=== PATIENT | female | born 1995 | race Caucasian/White ===

== ENCOUNTER 2024-05-25 13:13 | Emergency (ER) | payer MEDICAID, SELFPAY ==
[2024-05-25 13:15] VITALS: BP 122/63; PULSE 81; TEMP 36.7; O2SAT 99; BMI 22.2
--- NOTE | 2024-05-25 13:26 | ED.GENADUL1 ---
HPI HPI - General Adult General Chief complaint: Altered Mental Status Stated complaint: ALTERED MENTAL STATUS Time Seen by Provider: 05/25/24 13:14 Source: patient Mode of arrival: ambulance Limitations: no limitations History of Present Illness HPI narrative: 28-year-old female presents for unclear reason. She was sent here from drug treatment center. She states that she was talking to somebody and then they made her come here. She started Lamictal 2 days ago, for unclear reason. 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 She does not have a physical complaints and states she does not even need to be here and did not want to come here but they made her come. Related Data Home Medications ?Medication ?Instructions ?Recorded ?Confirmed fluoxetine .ROUTE 05/25/24 lamotrigine 25 mg tablet (Lamictal) 25 mg PO DAILY 05/25/24 05/25/24 levothyroxine 50 mcg capsule 50 mcg PO DAILY 05/25/24 05/25/24 Allergies Allergy/AdvReac Type Severity Reaction Status Date / Time No Known Drug Allergies Allergy Verified 05/25/24 13:14 Opioid HPI Opioid Management Most Recent Opioid Data: No Data to Display Review of Systems ROS Narrative A ten point review of systems is negative except as noted above. PFSH PFSH Social History Little interest or pleasure in doing things: not at all Feeling down, depressed, or hopeless: not at all Exam Narrative Exam Narrative: Nurses note and vital signs reviewed and patient is not hypoxic. General: The patient appears well and in no apparent distress. Patient is resting comfortably on cart. Skin: Warm, dry, no pallor noted. There are numerous small skin excoriations on various areas of her body. None appear to be draining or have surrounding erythema Head: Normocephalic, atraumatic Eye: Normal conjunctiva, no drainage Ears, Nose, Mouth, and Throat: oral mucosa is moist. Nares patent. Cardiovascular: Regular Rate and Rhythm Respiratory: Patient is in no distress, no accessory muscle use, lungs are clear to auscultation, no wheezing, rales or rhonchi Back: non-tender GI: Soft and nontender Musculoskeletal: The patient has no evidence of calf tenderness, no pitting edema, symmetrical pulses noted bilaterally Neurological: A&O x4, normal speech Psychiatric: Cooperative and soft-spoken Constitutional Vital Signs, click to edit/add: Last Vital Signs Temp 98.1 F 05/25/24 13:15 Pulse 81 05/25/24 13:15 Resp 18 05/25/24 13:15 BP 122/63 05/25/24 13:15 Pulse Ox 99 05/25/24 13:15 O2 Del Method Room Air 05/25/24 13:15 Course Vital Signs Vital signs: Vital Signs Temperature 98.1 F 05/25/24 13:15 Pulse Rate 81 05/25/24 13:15 Respiratory Rate 18 05/25/24 13:15 Blood Pressure 122/63 05/25/24 13:15 Pulse Oximetry 99 05/25/24 13:15 Oxygen Delivery Method Room Air 05/25/24 13:15 Temperature 98.1 F 05/25/24 13:15 Pulse Rate 81 05/25/24 13:15 Respiratory Rate 18 05/25/24 13:15 Blood Pressure 122/63 05/25/24 13:15 Pulse Oximetry 99 05/25/24 13:15 Oxygen Delivery Method Room Air 05/25/24 13:15 Medical Decision Making MDM Narrative Medical decision making narrative: The patient has a normal exam including neurologic exam. She does not seem to have any symptoms at all and does not have a headache. Blood work is normal. She has no alcohol and she is already been drug tested at the facility where she is staying. She is not and blood work is normal. She is ambulatory without symptoms and is able to be discharged. Differential Diagnosis Differential Diagnosis: Substance abuse, alcohol intoxication, anemia, dehydration Lab Data Lab results reviewed: Yes I reviewed the patient's lab results Labs: Lab Results 05/25/24 Range/Units 13:37 WBC 7.8 (4.0-11.0) 10^3/uL RBC 3.91 L (4.20-5.40) 10^6/uL Hgb 12.2 (12.0-16.0) g/dL Hct 37.1 (36.0-48.0) % MCV 94.9 (81.0-99.0) fL MCH 31.2 (26.7-34.0) pg MCHC 32.9 (29.9-35.2) g/dL RDW 13.0 (11.0-15.0) % Plt Count 147 L (150-450) 10^3/uL MPV 12.4 (9.5-13.5) fL Neut % (Auto) 77.7 H (43.0-75.0) % Lymph % (Auto) 15.7 L (20.5-60.0) % Carroll % (Auto) 4.8 (1.7-12.0) % Eos % (Auto) 0.9 (0.9-7.0) % Baso % (Auto) 0.8 (0.2-2.0) % Neut # (Auto) 6.1 (1.4-6.5) 10^3/uL Lymph # (Auto) 1.2 (1.2-3.8) 10^3/uL Carroll # (Auto) 0.4 (0.3-0.8) 10^3/uL Eos # (Auto) 0.1 (0.0-0.7) 10^3/uL Baso # (Auto) 0.1 (0.0-0.1) 10^3/uL Abs Immat Gran (auto) 0.01 (0.00-0.03) 10^3/uL Imm/Tot Granulo (auto) 0.1 (0.0-0.5) % Sodium 143 (136-145) mmol/L Potassium 4.1 (3.5-5.1) mmol/L Chloride 105 (98-107) mmol/L Carbon Dioxide 29.5 (21.0-32.0) mmol/L Anion Gap 12.6 BUN 14.0 (7.0-18.0) mg/dL Creatinine 0.94 (0.55-1.02) mg/dL Est GFR ( Amer) >60 (>=60 mL/min/1.73m^2) Est GFR (Non-Af Amer) >60 (>=60 mL/min/1.73m^2) BUN/Creatinine Ratio 14.9 Glucose 91 (74-106) mg/dL Calcium 9.0 (8.5-10.1) mg/dL Serum HCG, Qual Negative (NEGATIVE) Ethanol Quant <3 mg/dL Discharge Plan Discharge Chief Complaint: Altered Mental Status Clinical Impression: Altered mental status Patient Disposition: Home, Self-Care Time of Disposition Decision: 14:17 Condition: Good Mode of Transportation: Private Vehicle Prescriptions / Home Meds: No Action levothyroxine 50 mcg capsule 50 mcg PO DAILY fluoxetine .ROUTE lamotrigine [Lamictal] 25 mg tablet 25 mg PO DAILY Print Language: Taiwanese Instructions: Altered Mental Status (ED) Referrals: Physician,Non-Staff, MD [Primary Care Provider] - 1 week
--- NOTE | 2024-05-25 13:34 | PC.NURSE ---
pt is alert x 4, mild eye fluttering, drowsiness
[2024-05-25 13:42] LABS: Basophils Absolute Auto 0.1 10^3/uL (0.0-0.1); Basophils Percent Auto 0.8 % (0.2-2.0); Eosinophils Absolute Auto 0.1 10^3/uL (0.0-0.7); Eosinophils Percent Auto 0.9 % (0.9-7.0); Hematocrit 37.1 % (36.0-48.0); Hemoglobin 12.2 g/dL (12.0-16.0); Immature Granulocytes Abs Auto 0.01 10^3/uL (0.00-0.03); Immature Granulocytes Pct Auto 0.1 % (0.0-0.5); Lymphocytes Absolute Auto 1.2 10^3/uL (1.2-3.8); Lymphocytes Percent Auto 15.7 % (20.5-60.0); Mean Corpuscular HGB Conc 32.9 g/dL (29.9-35.2); Mean Corpuscular Hemoglobin 31.2 pg (26.7-34.0); Mean Corpuscular Volume 94.9 fL (81.0-99.0); Mean Platelet Volume 12.4 fL (9.5-13.5); Monocytes Absolute Auto 0.4 10^3/uL (0.3-0.8); Monocytes Percent Auto 4.8 % (1.7-12.0); Neutrophils Absolute Auto 6.1 10^3/uL (1.4-6.5); Neutrophils Percent Auto 77.7 % (43.0-75.0); Platelet Count 147 10^3/uL (150-450); Red Blood Count 3.91 10^6/uL (4.20-5.40); White Blood Count 7.8 10^3/uL (4.0-11.0)
[2024-05-25 13:55] LABS: Anion Gap 12.6; BUN Creatinine Ratio 14.9; Carbon Dioxide 29.5 mmol/L (21.0-32.0); Chloride 105 mmol/L (98-107); Estimated GFR (African America >60 (>=60 mL/min/1.73m^2); Estimated GFR (Non-African Ame >60 (>=60 mL/min/1.73m^2); Glucose 91 mg/dL (74-106); Potassium 4.1 mmol/L (3.5-5.1); Sodium 143 mmol/L (136-145)
[2024-05-25 13:56] LABS: HCG Qualitative NEGATIVE (NEGATIVE); Internal Control Within Normal Limits
[2024-05-25 13:57] LABS: Ethanol <3 mg/dL
--- NOTE | 2024-05-25 14:14 | PC.NURSE ---
pt ambulates in room without difficulty
== END 2024-05-25 14:54 | disposition home or self-care (01) ==
PROVIDERS: Emergency Provider Emergency Medicine
DX: R41.82 Altered mental status, unspecified (principal)
CPT/HCPCS: 36415; 80048; 80320; 84703; 85025; 99283